=== PATIENT | male | born 1985 | race Caucasian/White ===

== ENCOUNTER 2017-04-13 12:23 | Emergency (ER) | payer OTHER ==
[~2017-04-13] VITALS: Ht 180.3 cm; Wt 59.5 kg
[2017-04-13 12:36] VITALS: BP 112/71; PULSE 104; RESP 15; O2SAT 99
--- NOTE | 2017-04-13 12:48 | ED.REPORT ---
HPI-Headache Date of Service Apr 13, 2017 ED Provider: Liu Driver MD The pt is a 32 y/o male w/ a hx of cellulitis presenting to the ED complaining of blurred vision in the L eye. He describes the blurred vision affecting him for three fourths of the day but did no see black spots. Other symptoms include a L sided headache, generalized numbness and paresthesia, L sided jaw pain, a productive cough, sensations of hot and cold, and recent loss of weight. All of his symptoms began 6 days ago. The pt has taken Tylenol and iced his jaw for the pain. Nursing Notes Stated Complaint: TEMPORAL PAIN Chief Complaint: Blurred vision Nursing Notes Reviewed: Yes Allergies: Coded Allergies: Penicillins (Verified Allergy, Intermediate, 04/13/17) Scheduled Prednisone (PredniSONE) 20 Mg Tablet 40 MG PO DAILY General Time Seen by MD: 12:47 Chief Complaint Other (Blurred vision ) Hx Obtained From: Patient Arrived By: Walk-in Sudden in Onset?: Yes Onset Occurred: 6 days ago Symptom Duration: Since onset Recent Healthcare: No recent doctor visit, No recent hospitalization Similar Sx Previous: No Past Medical History Past Medical History Cellulitis Past Surgical History None reported Smoking History Current Every Day Smoker Social History None reported Ambulatory Status Independent Review of Systems Generalized paresthesia; Sensations of hot and cold; Recent loss of weight; L jaw pain; Eyes: Reports: Blurred left Neurologic: Reports: Headache (L sided ), Numbness (Generalized ) Complete sys rev & neg: except as marked. Respiratory: Reports: Prod cough, clear Physical Exam Initial Vital Signs Vital Signs (First) Date Time Temp Pulse Resp B/P Pulse Ox O2 Delivery O2 Flow Rate FiO2 04/13/17 12:36 36.4 104 15 112/71 99 Room Air Initial VS: Reviewed ENT: Mucous membranes moist, Conjunctiva normal, No scleral icterus Respiratory: Breath sounds normal, Clear to auscultation, No respiratory distress Cardiovascular: Regular rate & rhythm, Heart sounds normal, Intact distal pulses Extremities: Vascular intact, Neuro intact, No swelling, No tenderness Skin: Warm, Dry, No cyanosis Psychiatric: Mood/affect normal, Behavior normal, Normal thought content General/Constitutional: Awake, Alert Head / Eyes: Normocephalic Tender over L congregation Neck: Atraumatic, Supple, Full range of motion Neurologic: Oriented X3, Speech NL Interpretation & Diagnostics Lab Results Interpretation Result Diagram: 04/13/17 1322 04/13/17 1322 Test 04/13/17 13:22 White Blood Count 11.4th/mm3 (3.8-10.1) Red Blood Count 4.66mil/mm3 (4.40-5.80) Hemoglobin 15.3g/dL (13.8-17.2) Hematocrit 43.5% (41.0-50.0) Mean Corpuscular Volume 93.3fL (81-100) Mean Corpuscular Hemoglobin 32.8pg (27.0-35.0) Mean Corpuscular Hemoglobin Concent 35.2% (32.0-37.0) Red Cell Distribution Width 12.6% (12.3-15.4) Platelet Count 197bil/L (150-400) Neutrophils (%) (Auto) 69.0% (40-74) Lymphocytes (%) (Auto) 18.8% (14-46) Monocytes (%) (Auto) 8.2% (4-12) Eosinophils (%) (Auto) 3.2% (0-5) Basophils (%) (Auto) 0.6% (0-3) Erythrocyte Sedimentation Rate 4mm/hr (0-15) Sodium Level 141mEq/L (134-144) Potassium Level 4.2mEq/L (3.5-5.2) Chloride Level 104mEq/L (97-108) Carbon Dioxide Level 23mmol/L (18-29) Blood Urea Nitrogen 14mg/dL (6-20) Creatinine 0.84mg/dL (0.76-1.27) Estimat Glomerular Filtration Rate 114mL/min (>59) Glucose Level 93mg/dL (60-99) Calcium Level 9.8mg/dL (8.5-10.1) Total Bilirubin 0.3mg/dL (0.0-1.2) Aspartate Amino Transf (AST/SGOT) 22U/L (0-50) Alanine Aminotransferase (ALT/SGPT) 22U/L (0-44) Alkaline Phosphatase 53U/L (25-150) C-Reactive Protein 0.2mg/dL (0.0-0.5) Total Protein 7.4g/dL (6.4-8.4) Albumin 4.8g/dL (3.4-5.0) Hold Flores Top Tube Received (Received) CT Head Interpretation IMPRESSION: Negative head CT. No acute intracranial hemorrhage. Dictated by: Emile Lopez M.D. on 04/13/2017 at 13:02 Approved by: Emile Lopez M.D. on 04/13/2017 at 13:03 Study: Head CT no contrast Interpretation / Wet Read by: Interpret - Radiologist Re-Eval/Medical Decision Med Decision/Clinical Course 32-year-old male presenting complaining of left temporal pain times several days. He reports left eye blurry vision yesterday which has resolved. He reports left jaw, medication. He has been researching temporal arteritis on the Internet. He is tender over the left congregation. His symptoms are consistent with temporal arteritis though his inflammatory markers are normal. I discussed with ophthalmology Dr. Olson who recommended inflammatory markers and started on prednisone with follow-up with primary doctor tomorrow who can coordinate possible temporal artery biopsy. He may have temporal arteritis therefore started on steroids. However his normal inflammatory markers argue otherwise. We have given him a primary doctor for follow-up tomorrow. Return precautions given. Source of Hx: Old records Re-Evaluation/Progress : Time of Eval: 14:20 Re-Evaluation/Progress Note: Pt rechecked. Informed pt of plan for treatment. Pt understands and agrees with plan for treatment. F/U instructions and RTER warnings given. All questions addressed. Consultation : Consulted With: [facility] Hand Call Returned at: 13:19 Note: Spoke w/ Dr. Olson, opthalmologist who recommends getting bloodwork and if inflammatory markers are elevated to have the pt follow up w/ their PCP tomorrow who can pursue getting a temporal arteritis biopsy scheduled and starting steroids . Counseled Regarding: Diagnosis, Lab results, Need for follow-up, When/why to return to ED Discharge & Departure Impression: Primary Impression: Headache Headache type: unspecified Headache chronicity pattern: unspecified pattern Intractability: intractable Qualified Code: R51 - Headache Additional Impression: Temporal pain Disposition: Home Discharge Condition All VS Reviewed: Yes Condition: Stable Additional Instructions: Thank for you entrusting us with your care today. I discussed your case with the cloud consultant and we found that your inflammatory markers were normal. This make temporal arteritis an unlikely diagnosis, although we can not completely rule it out. You can follow up with your primary care provider tomorrow and you may benefit from a referral for a temporal artery biopsy. Please use the steroids as prescribed. Please return to the emergency department if you experience any visual loss, worsening headache or pain, or any other new or worsening symptoms. I hope you feel better soon. Referrals: Caron Romano MD Scribe Attestation Portions of this note were transcribed by Anant Carcamo. I, Dr. Hatfield personally performed the history, physical exam and medical decision-making; I reviewed and confirmed the accuracy of the information in the transcribed note. copies to: Caron Romano MD, Ben M MD Apr 13, 2017 12:48 Anant Carcamo Apr 13, 2017 13:10
[2017-04-13 13:57] LABS: ERYTHROCYTE SEDIMENTATION RATE 4 mm/hr (0-15)
--- NOTE | 2017-04-13 14:05 | DRSVH ---
PROCEDURE: CT BRAIN WITHOUT CONTRAST ([id number]) INDICATIONS: headache, visual loss TECHNIQUE: Noncontrast 4.5 mm thick angled axial sections acquired from the foramen magnum to the vertex, with c oronal reformats. COMPARISON: None. FINDINGS: Image quality: Excellent. CSF spaces: Basal cisterns are patent. No extra-axial fluid collections. Ventricles are normal in size and shape. Brain: No midline shift. No intracranial masses or hemorrhage. Rueda-white matter interface is norm al. Skull and face: Calvarium and visualized facial bones are intact, without suspicious lesions. Sinuses: Visualized sinuses and mastoids are clear. IMPRESSION: Negative head CT. No acute intracranial hemorrhage. Dictated by: Emile Lopez M.D. on 04/13/2017 at 13:02 Approved by: Emile Lopez M.D. on 04/13/2017 at 13:03
[2017-04-13 14:10] LABS: BASOPHILS % (AUTO) 0.6 % (0-3); EOSINOPHILS % (AUTO) 3.2 % (0-5); MONOCYTES % (AUTO) 8.2 % (4-12); Mean Corpuscular Hemoglobin 32.8 pg (27.0-35.0); Mean Corpuscular Volume 93.3 fL (81-100); Platelet Count 197 bil/L (150-400)
[2017-04-13] MEDS ORDERED: PRE20 PO (14:16)
== END 2017-04-13 14:45 | disposition home or self-care (01) ==
LOC: SED 12:23
DX: R51 Headache (principal); R20.0 Anesthesia of skin; R20.2 Paresthesia of skin; R68.84 Jaw pain; R05 Cough; R20.8 Other disturbances of skin sensation; R63.4 Abnormal weight loss; F17.200 Nicotine dependence, unspecified, uncomplicated; Z88.0 Allergy status to penicillin